=== PATIENT | female | born 1985 | race Caucasian/White ===

== ENCOUNTER 2017-08-29 19:22 | Emergency (ER) | payer OTHER, SELFPAY ==
[2017-08-29 19:22] VITALS: BP 114/85; PULSE 74; RESP 15; TEMP 36.7; BMI 22.3
--- NOTE | 2017-08-29 19:37 | ED.VISSUMM ---
- ER Visit Summary Date of Service: 08/29/17 Chief Complaint: Right wrist pain History of Present Illness: The patient is a 32 F who states she slapped a door open handed today because she was angry and upset. She now has pain to her right wrist. She is right-hand dominant. She denies paresthesias. Physical Examination: Vital signs are unremarkable. Physical exam is significant for right upper extremity which reveals focal tenderness over the ulnar aspect of the right wrist. There is no tenderness of the metacarpals. She has full range of motion. Normal cap refill is noted. Normal sensation is noted. Test Results: Right wrist x-rays are unremarkable. Emergency Department Course and Treatment: As results are discussed with the patient. She was placed in an Ronald wrap. Treatment Plan: [] Disposition: Discharge Impression: Right wrist sprain This note was generated with [facility] dictation software. It may contain incorrect words, spelling, and punctuation that were not noted in review of the chart prior to signing ED Disposition - Plan for ED Patient: Chief Complaint: Upper Extremity Injury Referrals: David Reaves DO [Primary Care Provider] -
--- NOTE | 2017-08-29 19:40 | RAD_ITS ---
XR Wrist Min 3 Views INDICATION: PAIN S/P PUNCHING DOOR COMPARISON: None TECHNIQUE: 3 views of the right wrist FINDINGS: The osseous structures are intact and well aligned. Joint spaces are preserved. No evidence of radiopaque foreign body. RAD/Wrist min 3 Views IMPRESSION: Negative plain film examination of the right wrist. at 2021 Reported and signed by: Jazmyn Westfall MD Electronically Signed: Jazmyn Westfall MD at 19:20 EST Tel , Service support ,
--- NOTE | 2017-08-29 20:33 | ED.DEP ---
ED Disposition - Plan for ED Patient: Disposition: Home or Assisted Living Chief Complaint: Upper Extremity Injury Instructions: ED Sprain Wrist Referrals: David Reaves DO [Primary Care Provider] - As Needed
[2017-08-29 20:38] VITALS: RESP 16
== END 2017-08-29 20:39 | disposition home or self-care (01) ==
PROVIDERS: Emergency Provider Emergency Medicine; Family Provider Family Medicine; PCP Family Medicine
DX: S63.501A Unspecified sprain of right wrist, initial encounter (principal); Z72.0 Tobacco use; W22.8XXA Striking against or struck by other objects, initial encounter; Y93.89 Activity, other specified; Y92.89 Other specified places as the place of occurrence of the external cause; Y99.8 Other external cause status
CPT/HCPCS: 73110; 99282

== ENCOUNTER → 2018-04-09 16:03 | Outpatient (CLI) | payer OTHER, SELFPAY ==
[2018-04-09 17:39] LABS: Absolute Neutrophil Count 3.7 X10^3/uL (2.0-7.7); Basophil# 0.03 X10^3/uL; Basophil% 0.5 % (0-1); Eosinophils% 1.7 % (0-5); Hematocrit 38.3 % (37-47); Hemoglobin 12.6 g/dl (12.0-15.0); Lymphocyte % 23.6 % (19-41); Mean Corp Hgb Conc 32.9 g/gl (32-36); Mean Corpuscular Hgb 31.6 pg (27.0-32.0); Mean Platelet Vol. 10.5 fl (6.2-12.0); Monocyte# 0.69 X10^3/uL; Monocyte% 11.7 % (0-10); Neutrophil # 3.68 X10^3/uL (2.7-7.7); Neutrophil % 62.2 % (47-70); Platelet Count 269 K/mm3 (150-450); RBC Distribution Width CV 12.4 % (11.6-14.6); RBC Distribution Width SD 42.4 fl (35.1-43.9); Red Blood Count 3.99 M/mm3 (4.2-5.4); White Blood Count 5.9 K/mm3 (4.4-11.0)
[2018-04-09 17:48] LABS: POSITIVE COUNT NO; POSITIVE DIFFERENTIAL NO; POSITIVE MORPHOLOGY NO
[2018-04-09 17:59] LABS: Vitamin B12 323 pg/mL (211-911)
[2018-04-09 18:27] LABS: Ferritin 7 ng/mL (8-252); Iron 44 ug/dL (50-170); Iron Binding Capacity,Total 345 ug/dL (250-450); Thyroid Stim Hormone (TSH) 0.71 uIU/mL (0.358-3.74)
== END ==
PROVIDERS: Family Provider Family Medicine; PCP Family Medicine; Visit Provider Family Medicine
DX: D64.9 Anemia, unspecified (principal); H05.20 Unspecified exophthalmos
CPT/HCPCS: 36415; 82607; 82728; 82746; 83540; 83550; 84443; 85025

== ENCOUNTER → 2018-06-17 09:32 | Outpatient (CLI) | payer OTHER, SELFPAY ==
--- NOTE | 2018-06-17 09:37 | RAD_ITS ---
STUDY: X-RAY - LEFT HIP REASON FOR EXAM: Female, 33 years old. 2 week history of left hip pain and left groin pain. TECHNIQUE: 2 views of the hip. COMPARISON: None. FINDINGS: Normal femoral head, neck, intertrochanteric region and visualized proximal femur. Normal acetabulum. Normal hip joint. Normal visualized superior and inferior pubic rami and ischial tuberosities. Calcified phleboliths are seen in the pelvis. Moderate amount of fecal material is seen in the colon. RAD/Hip Min 2 Views (Portable) IMPRESSION: Normal x-ray examination of the hip. Electronically Signed: Saúl Weiss MD at 9:45 EST Tel [phone], Service support ,
--- OUTSIDE RECORDS SUMMARY | 2018-08-03 03:12 | XMS RPT_ITS ---
:1985 Author Organization [facility] Care Team Providers Name Role Phone David Reaves Attending Unavailable David Reaves Referring Unavailable David Reaves Primary Care Unavailable David Reaves Primary Care Unavailable Bk Prieto Attending Unavailable Lela Landis Attending Unavailable David Reaves Primary Care Unavailable PROBLEMS PROBLEMS DATE TYPE CONDITION / CODE ATTENDING STATUS SOURCE 06/17/2018 Unknown M25.552 - Pain in David Reaves Active [facility] left hip / Community M25.552(ICD-10) Hospital Repository 04/09/2018 Unknown D64.9 - Anemia, Lela Landis Active [facility] unspecified / Community D64.9(ICD-10) Hospital Repository 04/09/2018 Unknown H05.20 - Lela Landis Active [facility] Unspecified Community exophthalmos / Hospital H05.20(ICD-10) Repository PROCEDURES PROCEDURES No Procedure Records FoundRESULTS RESULTS HIP MIN 2 VIEWS Observed: 06/17/2018 Status: F Source: [place] (PORTABLE) 9:37 AM [facility] HOSPITAL REPOSITORY [facility] Imaging Services [address] [place] [address] Hip Min 2 Views (Portable) MR#: [id number] Acct: [id number] Name: BK CONROY Rep #: [id number] : 1985 F 33 From: Saúl Weiss MD PCP: David Reaves DO Status: REG CLI Study: Hip Min 2 Views (Portable) Date of Exam: 06/17/18 Exam# [id number] Ordering Dr: David Reaves DO STUDY: X-RAY - LEFT HIP REASON FOR EXAM: Female, 33 years old. 2 week history of left hip pain and left groin pain. TECHNIQUE: 2 views of the hip. COMPARISON: None. FINDINGS: Normal femoral head, neck, intertrochanteric region and visualized proximal femur. Normal acetabulum. Normal hip joint. Normal visualized superior and inferior pubic rami and ischial tuberosities. Calcified phleboliths are seen in the pelvis. Moderate amount of fecal material is seen in the colon. RAD/Hip Min 2 Views (Portable) IMPRESSION: Normal x-ray examination of the hip. Electronically Signed: Saúl Weiss MD at 9:45 EST Tel [phone], Service support , CC: David Reaves DO [employer] Ticket Seller: Signed CBC W/DIFF, AUTOMATED Collected: 04/09/2018 Status: F Source: [place] 4:04 PM [facility] HOSPITAL REPOSITORY TYPE CODE TESTS RESULT OUT OF RANGE REFERENCE UNITS LAB L100.1000 4.4-11.0 K/mm3 Normal WBC 5.9 LAB L100.1200 4.2-5.4 M/mm3 Low RBC 3.99 LAB L100.1300 12.0-15.0 g/dl Normal HGB 12.6 LAB L100.1400 37-47 % Normal HCT 38.3 LAB L100.1500 81-99 fL Normal MCV 96.0 LAB L100.1600 27.0-32.0 pg Normal MCH 31.6 LAB L100.1700 32-36 g/gl Normal MCHC 32.9 LAB L100.1810 11.6-14.6 % Normal RDW CV 12.4 LAB L100.1820 35.1-43.9 fl Normal RDW SD 42.4 LAB L100.1900 150-450 K/mm3 Normal PLT 269 LAB L100.2000 6.2-12.0 fl Normal MPV 10.5 LAB L100.2100 47-70 % Normal NEUT% 62.2 LAB L100.2200 19-41 % Normal LY% 23.6 LAB L100.2300 0-10 % High MONO% 11.7 LAB L100.2400 0-5 % Normal EO% 1.7 LAB L100.2500 0-1 % Normal BASO% 0.5 LAB L100.2550 0.0-0.9 % Normal IM GRAN % 0.300 Result Comment: IG% - Immature Granulocytes (promyelocytes, myelocytes and metamyelocytes) > 1% indicates that a LEFT SHIFT is Present. LAB L100.2620 2.0-7.7 X10 3/uL Normal Absolute Neut 3.7 LAB L100.2720 0.83-4.51 X10 3/ul Normal Absolute Lymph 1.40 Performed By: #### L100.0100 #### [facility] Laboratory [address] [place], [place], [address] VITAMIN B12 Collected: 04/09/2018 Status: F Source: COT[place]I 4:04 PM [facility] REPOSITORY TYPE CODE TESTS RESULT OUT OF RANGE REFERENCE UNITS LAB L503.0105 211-911 pg/mL Normal Vitamin B12 323 Performed By: #### L503.0105 #### [facility] Laboratory [address] [place], [address] THYROID STIM HORMONE Collected: 04/09/2018 Status: F Source: [place] (TSH) 4:04 PM [facility] REPOSITORY Order Comment: Is Patient Taking Vitamins or Folic Acid Supplements? N TYPE CODE TESTS RESULT OUT OF RANGE REFERENCE UNITS LAB L501.9520 0.358-3.74 uIU/mL Normal TSH 0.71 Performed By: #### L501.9520, L503.6075, L503.6150, L503.6550, L506.0250 #### [facility] Laboratory [address] [place], [address] IRON BINDING Collected: 04/09/2018 Status: F Source: [place] CAPACITY,TOTAL 4:04 PM [facility] REPOSITORY Order Comment: Is Patient Taking Vitamins or Folic Acid Supplements? N TYPE CODE TESTS RESULT OUT OF RANGE REFERENCE UNITS LAB L503.6075 250-450 ug/dL Normal TIBC 345 Performed By: #### L501.9520, L503.6075, L503.6150, L503.6550, L506.0250 #### [facility] Laboratory [address] [place], [address] IRON Collected: 04/09/2018 Status: F Source: [place] 4:04 PM [facility] REPOSITORY Order Comment: Is Patient Taking Vitamins or Folic Acid Supplements? N TYPE CODE TESTS RESULT OUT OF RANGE REFERENCE UNITS LAB L503.6150 50-170 ug/dL Low IRON 44 Performed By: #### L501.9520, L503.6075, L503.6150, L503.6550, L506.0250 #### [facility] Laboratory [address] [place], [address] FERRITIN Collected: 04/09/2018 Status: F Source: [place] 4:04 PM [facility] REPOSITORY Order Comment: Is Patient Taking Vitamins or Folic Acid Supplements? N TYPE CODE TESTS RESULT OUT OF REFERENCE UNITS RANGE LAB L503.6550 8-252 ng/mL Low FERRITIN 7 Performed By: #### L501.9520, L503.6075, L503.6150, L503.6550, L506.0250 #### [facility] Laboratory [address] [place], [address] FOLATES, (FOLIC ACID) Collected: 04/09/2018 Status: F Source: [place] 4:04 PM [facility] REPOSITORY Order Comment: Is Patient Taking Vitamins or Folic Acid Supplements? N TYPE CODE TESTS RESULT OUT OF RANGE REFERENCE UNITS LAB L506.0250 3.1-55.4 ng/mL Normal FOLATES 22.70 Performed By: #### L501.9520, L503.6075, L503.6150, L503.6550, L506.0250 #### [facility] Laboratory [address] [place], [address] EMERGENCY DEPARTMENT Observed: 08/29/2017 Status: F Source: BR[place] SUMMARY 10:56 PM [facility] REPOSITORY [facility] Medical Records Department [address] [place] [address] Emergency Department Summary 08/29/17 1937 MR#: [id number] Acct: [id number] Name: BK CONROY Rep #: [id number] : 1985 32 From: Bk Prieto MD PCP: David Reaves DO Status: DEP ER - ER Visit Summary Date of Service: 08/29/17 Chief Complaint: Right wrist pain History of Present Illness: The patient is a 32 F who states she slapped a door open handed today because she was angry and upset. She now has pain to her right wrist. She is right-hand dominant. She denies paresthesias. Physical Examination: Vital signs are unremarkable. Physical exam is significant for right upper extremity which reveals focal tenderness over the ulnar aspect of the right wrist. There is no tenderness of the metacarpals. She has full range of motion. Normal cap refill is noted. Normal sensation is noted. Test Results: Right wrist x-rays are unremarkable. Emergency Department Course and Treatment: As results are discussed with the patient. She was placed in an Ronald wrap. Treatment Plan: [] Disposition: Discharge Impression: Right wrist sprain This note was generated with [employer] dictation software. It may contain incorrect words, spelling, and punctuation that were not noted in review of the chart prior to signing ED Disposition - Plan for ED Patient: Chief Complaint: Upper Extremity Injury Referrals: David Reaves DO [Primary Care Provider] - What to do if you have Problems For any increased pain, shortness of breath, bleeding, nausea or vomiting, chest pain, or any unexpected problems, contact your Primary Care Provider. Call [facility] ([phone]) or report to the closest Emergency Room. Call 911 if necessary. 08/29/172255 <Electronically signed by Bk Prieto MD> Date Bk Prieto MD Cosigner Signature (If Indicated): Date CC: David Reaves DO DISCHARGE INSTRUCTION Observed: 08/29/2017 Status: F Source: COTOPAXI 8:34 PM [facility] REPOSITORY [facility] Medical Records Department [address] [place] [address] Discharge Instruction 08/29/172032 MR#: [id number] Acct: [id number] Name: BK CONROY Rep #: [id number] : 1985 32 From: Bk Prieto MD PCP: David Reaves DO Status: REG ER ED Disposition - Plan for ED Patient: Disposition: Home or Assisted Living Chief Complaint: Upper Extremity Injury Instructions: ED Sprain Wrist Referrals: David Reaves DO [Primary Care Provider] - As Needed What to do if you have Problems For any increased pain, shortness of breath, bleeding, nausea or vomiting, chest pain, or any unexpected problems, contact your Primary Care Provider. Call [facility] ([phone]) or report to the closest Emergency Room. Call 911 if necessary. 08/29/172033 <Electronically signed by Bk Prieto MD> Date Bk Prieto MD Cosigner Signature (If Indicated): Date CC: David Reaves DO WRIST MIN 3 VIEWS Observed: 08/29/2017 Status: F Source: [place] 7:36 PM [facility] Imaging Services [address] [place] [address] Wrist min 3 Views MR#: [id number] Acct: [id number] Name: BK CONROY Rep #: [id number] : 1985 F 32 From: Jazmyn Westfall MD PCP: David Reaves DO Status: REG ER Study: Wrist min 3 Views Date of Exam: 08/29/17 Exam# [id number] Ordering Dr: Bk Prieto MD XR Wrist Min 3 Views INDICATION: PAIN S/P PUNCHING DOOR COMPARISON: None TECHNIQUE: 3 views of the right wrist FINDINGS: The osseous structures are intact and well aligned. Joint spaces are preserved. No evidence of radiopaque foreign body. RAD/Wrist min 3 Views IMPRESSION: Negative plain film examination of the right wrist. at 2021 Reported and signed by: Jazmyn Westfall MD Electronically Signed: Jazmyn Westfall MD at 19:20 EST Tel , Service support , CC: Bk Prieto MD; David Reaves DO [employer] Ticket Seller: Signed ALLERGIES ALLERGIES DATE TYPE / CODE NAME / CODE REACTION SEVERITY SOURCE 08/29/2017 Drug Penicillins/ Hives Unknown [facility] Allergy/4160 [id number]( Hospital 23049(SNOMED XNORM) Repository CT) ENCOUNTERS ENCOUNTERS ADMIT/DISCHARGE ACCOUNT ADMITTING ENCOUNTER LOCATION SOURCE NUMBER CLASS 06/17/2018 [id number] Ambulatory [address] ing:MTRAD Repository 04/09/2018 [id number] Ambulatory [facility] [place] 2 [facility] ing:BFHLAB Repository 08/29/2017/ [id number] Emergency [facility] [place] 8 0 [facility] ing:ED Repository PAYERS PAYERS ENCOUNTER GUARANTOR PAYER SUBSCRIBER SOURCE 06/17/2018 BK Abdullahi Primary BK [facility] [id number] Insurance:SUMMA BRESSIDOB: Community RUDOLPH CAREPolicy [place]: [id number] [id number] Repository [address]Nzm: (330) Date:2242-66-17VM [phone] (HP) [address] [place] [phone]: 06/17/2018 Secondary NOT GIVENUNK [place] Insurance:SELF PAY [facility] Number: Effective Repository Date:2018-06-17 04/09/2018 BK Abdullahi Primary BK Cardona [id number] Insurance:SUMMA BRESSIDOB: [facility] Rudolph CAREPolicy Number: [id number] [id number] Repository [address]Ylj: (330) Date:2475-86-33FG [phone] () [address] [place] [phone]: 04/09/2018 Secondary NOT GIVENUNK [place] Insurance:SELF PAY [facility] Number: Effective Repository Date:2018-04-09 08/29/2017 BK Abdullahi Primary BK Cardona [id number] Insurance:SUMMA BRESSIDOB: [facility] [place] CAREPolicy Number: [id number] [id number] Repository [address]Efp: (330) Date:9997-84-21EV [phone] (HP) [address], [place] [address]HM: 08/29/2017 Secondary NOT GIVENUNK [facility] Insurance:SELF PAY [facility] Number: Effective Repository Date:2017-08-29
== END ==
PROVIDERS: Family Provider Family Medicine; PCP Family Medicine; Referring Provider Family Medicine; Visit Provider Family Medicine
DX: M25.552 Pain in left hip (principal)
CPT/HCPCS: 73502

== ENCOUNTER 2020-03-04 08:38 | Emergency (ER) | payer OTHER, SELFPAY ==
[2019-01-17 11:15] VITALS: BMI 22.3
[2020-03-04 08:39] VITALS: BP 135/93; PULSE 72; RESP 17; TEMP 36.2; O2SAT 100; BMI 23.0
--- NOTE | 2020-03-04 09:02 | ED.DCSUM_ITS ---
History of Present Illness Chief Complaint: Abscess Informant: Patient, Family Narrative: 34-year-old female with no past medical history presents with concern for swelling within her vagina. States is been present over the past few days. States that she has had it before in the past however this is more painful than previously. Denies any fever or chills. Denies any urinary symptoms or drainage. Denies any concern for STDs. Past Medical History - Allergies and Home Meds Allergies/Adverse Reactions: Allergies Penicillins Allergy (Verified 03/04/20 08:39) Hives Primary Care Physician: David Reaves DO [Primary Care Provider] - Past Medical History: None Surgical History: no surgical history Lives: Alone Smoking Status: Never smoker Alcohol: None Drugs: None Review of Systems General: Denies: Chills, Fever, Sweats Eyes: Denies: Visual changes - bilaterally, Diplopia ENT: Denies: Rhinorrhea, Sore throat Cardiovascular: Denies: Chest pain, Palpitations Respiratory: Denies: Dyspnea, Cough, Dyspnea on exertion Gastrointestinal: Denies: Abdominal pain, Nausea, Vomiting, Diarrhea, Melena, Hematochezia Genitourinary: Reports: - - Vaginal swelling and pain. Denies: Dysuria, Hematuria, Frequency Musculoskeletal: Denies: Back pain, Extremity Pain Skin: Denies: Rash, Wounds Neurological: Denies: Headache, Weakness, Numbness Physical Exam Vital Signs/Narrative: Vital Signs Temp Pulse Resp BP Pulse Ox 03/04/20 08:39 97.2 F L 72 17 135/93 H 100 Inital Vital Signs reviewed: Yes General: Well nourished, Well developed, No Acute Distress Head: Normocephalic, Atraumatic Eyes: Perrl, EOMI ENT: Moist mucous membranes, No rhinorrhea Neck: Supple, Nontender Cardiovascular: Regular rate, Regular rhythm, No murmurs Respiratory: No distress, CTA bilaterally, Chest nontender Abdomen: Soft, Nontender, Nondistended, Normal bowel sounds : - - Evidence of right-sided Bartholin abscess versus cyst at approximately the 8 o'clock position. Back: Nontender, Normal Inspection Extremities: Nontender, No edema Skin: Normal color, No rash Neurological: Alert, Oriented x3, Cranial nerves II-XII grossly intact, Normal Strength, Normal Sensation Psychological: Normal affect, Normal Mood Diagnostic/Tx/Re-eval - Medical Decision Making Patient appears well nontoxic. Evidence of Bartholin gland abscess versus infected cyst on the right at the 8 o'clock position. Patient had this area incised and drained under local anesthesia with 1% lidocaine and epinephrine. Copious purulent material was evacuated. Curved hemostats were used to break up loculations. The area was irrigated well with sterile saline. Patient will be placed on Bactrim and will follow-up with MECHANICAL DEVELOPMENT ENGINEER tomorrow. Asked to return for any abdominal pain, fever, chills. Patient advised on sitz bath's and abstaining from sexual intercourse until cleared by MECHANICAL DEVELOPMENT ENGINEER. Discharged home in stable condition. Pression: 1. Bartholin gland abscess Procedures Procedure(s): incision and drainage ED Disposition - Plan for ED Patient: Disposition: Home or Assisted Living Instructions: ED Bartholins Cyst IandD Prescriptions: Smz/Tmp Ds [Bactrim Ds] 1 tab PO BID #14 tab Prescription Printed Oxycodone [Oxyir] 5 mg PO Q6H PRN PRN 2 Days #6 tab PRN Reason: Pain Score 6-10/10 Prescription Printed Referrals: David Reaves DO [Primary Care Provider] - Fany Bates MD [STAFF PHYSICIAN] -
[2020-03-04] MEDS: oxyCODONE 5 MG Tablet PO (09:04)
[2020-03-04 10:08] VITALS: PULSE 80; RESP 16; O2SAT 98
== END 2020-03-04 10:08 | disposition home or self-care (01) ==
PROVIDERS: Emergency Provider Emergency Medicine; PCP Family Medicine
DX: N75.1 Abscess of Bartholin's gland (principal); Z88.0 Allergy status to penicillin
CPT/HCPCS: 56420; 99283

== ENCOUNTER → 2020-07-24 13:51 | Outpatient (CLI) | payer OTHER, SELFPAY ==
[2020-03-09 13:35] VITALS: BMI 23.0
== END ==
PROVIDERS: PCP Family Medicine; Visit Provider Family Medicine
DX: U07.1 COVID-19 (principal)
CPT/HCPCS: 87635; U0003

== ENCOUNTER → 2020-09-10 14:53 | Outpatient (CLI) | payer OTHER, SELFPAY ==
[2020-03-09 13:35] VITALS: BMI 23.0
[2020-09-10 17:21] LABS: Absolute Neutrophil Count 5.7 X10^3/uL (2.0-7.7); Basophil# 0.02 X10^3/uL; Basophil% 0.2 % (0-1); Eosinophil# 0.04 X10^3/uL; Eosinophils% 0.5 % (0-5); Hematocrit 40.8 % (37-47); Hemoglobin 13.3 g/dL (12.0-15.0); Lymphocyte % 20.8 % (19-41); Mean Corp Hgb Conc 32.6 g/dL (32-36); Mean Corpuscular Hgb 30.8 pg (27.0-32.0); Mean Corpuscular Volume 94.4 fL (81-99); Mean Platelet Vol. 10.7 fl (6.2-12.0); Monocyte# 0.66 X10^3/uL; Monocyte% 8.1 % (0-10); NRBC Flagged by Analyzer 0 % (0-5); Neutrophil # 5.74 X10^3/uL (2.7-7.7); Platelet Count 253 K/mm3 (150-450); RBC Distribution Width SD 42.3 fl (35.1-43.9); Red Blood Count 4.32 M/mm3 (4.2-5.4); White Blood Count 8.2 K/mm3 (4.4-11.0)
[2020-09-10 17:27] LABS: Hemoglobin A1c 4.8 % (3.8-5.6)
[2020-09-10 17:41] LABS: Vitamin D,25 Hydroxy 24.8 ng/mL
[2020-09-10 18:27] LABS: ALB/GLOB Ratio 1.2 RATIO (0.9-2.4); AST(SGOT) 22 U/L (15-37); Alanine Aminotransfer ALT/SGPT 24 U/L (13-56); Albumin, Serum 4.3 g/dL (3.2-5.0); Alkaline Phosphatase 50 U/L (45-117); Anion Gap 5 (5-15); BUN 11 mg/dL (7-18); BUN/Creat Ratio 16.4 RATIO (10-20); Calcium,Total 8.8 mg/dL (8.5-10.1); Chloride 103 mmol/L (98-107); Creatinine, Serum 0.67 mg/dL (0.55-1.02); EST Glomerular Filtration Rate 105 mL/min (>60); Est Glom Filt Rate - Afr Amer 127 mL/min (>60); Globulin 3.5 g/dL (2.2-4.2); Glucose 90 mg/dL (74-106); Prolactin 27.9 ng/mL; Protein, Total 7.8 g/dL (6.4-8.2); Sodium Level 138 mmol/L (136-145); T4 Free Direct 1.12 ng/dL (0.76-1.46); Thyroid Stim Hormone (TSH) 1.17 uIU/mL (0.358-3.74)
== END ==
PROVIDERS: PCP Family Medicine; Visit Provider Family Medicine
DX: E16.2 Hypoglycemia, unspecified (principal); R53.83 Other fatigue; N92.6 Irregular menstruation, unspecified
CPT/HCPCS: 36415; 80053; 82306; 83036; 84146; 84439; 84443; 85025

== ENCOUNTER → 2020-12-17 12:40 | Outpatient (CLI) | payer OTHER, SELFPAY ==
[2020-03-09 13:35] VITALS: BMI 23.0
[2020-12-17 16:21] LABS: CPK Total, Creatine Kinase 74 U/L (26-192); CRP < 2.90 mg/L (0.0-3.0)
[2020-12-17 16:24] LABS: Erythrocyte Sedimentation Rate < 1 mm/hr (0-30)
[2020-12-19 15:34] LABS: ANTINUCLEAR ANTIBODIES DIRECT Negative (Negative)
== END ==
PROVIDERS: PCP Family Medicine; Referring Provider Family Medicine; Visit Provider Family Medicine
DX: M79.10 Myalgia, unspecified site (principal); R29.898 Other symptoms and signs involving the musculoskeletal system
CPT/HCPCS: 36415; 82550; 85652; 86038; 86140; 86225; 86235

== ENCOUNTER → 2021-01-02 06:39 | Outpatient (CLI) | payer OTHER, SELFPAY ==
[2020-03-09 13:35] VITALS: BMI 23.0
--- NOTE | 2021-01-02 06:55 | MRI_ITS ---
STUDY: MRI BRAIN WITH AND WITHOUT CONTRAST REASON FOR EXAM: Female, 35 years old. MS TECHNIQUE: Standardized multiplanar fat and water weighted pulse sequences were obtained. IV 10 cc dotarem was administered for the contrast portion of the examination. COMPARISON: None. FINDINGS: Normal size of the ventricles and extra-axial spaces for the patient''s age. Normal white matter tracts of the supratentorial brain. There is no evidence for recent intracranial ischemia or other cause of cytotoxic edema on diffusion weighted imaging (DWI). Normal T2* images of the brain without demonstrated susceptibility artifact. There is no demonstrated hemosiderin stain. Normal bilateral basal ganglia. Normal thalami. There is no extra-axial fluid accumulation. Normal flow voids within the major intracranial circulation suggesting patency by spin echo criteria. Normal venous enhancement. There is no enhancing intra-axial or extra-axial abnormality. Normal sella turcica, pituitary gland, infundibular stalk, optic chiasm and hypothalamus. Normal tectal plate and pineal gland. Normal midbrain, ron and medulla. Normal cerebellum. Normal basal cisterns. Normal bilateral temporal bones. Normal bilateral internal auditory canals. No demonstrated orbital abnormality, within the constraints of a routine brain study. Normal visualized paranasal sinuses. Normal calvarium and skull base. Normal visualized soft tissue structures. Normal visualized upper cervical spine. MRI/Brain W/WO Contrast IMPRESSION: Normal unenhanced and enhanced MRI of the brain. Electronically Signed: Gregory Barragan MD at 11:42 EDT Tel , Service support ,
--- NOTE | 2021-01-02 06:56 | MRI_ITS ---
STUDY: MRI CERVICAL SPINE WITH AND WITHOUT CONTRAST REASON FOR EXAM: Female, 35 years old. MS TECHNIQUE: Standardized fat and water weighted pulse sequences were obtained in the sagittal and axial following administration of IV 10 cc dotarem. COMPARISON: X-ray 03/18/2019 FINDINGS: Normal foramen magnum and brainstem-cervical cord junction. Normal craniovertebral junction. Normal anterior atlantoaxial articulation. Normal odontoid process. Normal cervical lordosis. Normal vertebral bodies and posterior osseous elements. C2-3: Normal endplates. Normal disc height, signal and morphology. Normal central canal and intervertebral neural foramina. C3-4: Normal endplates. Normal disc height, signal and morphology. Normal central canal and intervertebral neural foramina. C4-5: Normal endplates. Normal disc height, signal and morphology. Normal central canal and intervertebral neural foramina. C5-6: Normal endplates. Normal disc height, signal and morphology. Normal central canal and intervertebral neural foramina. C6-7: Normal endplates. Normal disc height, signal and morphology. Normal central canal and intervertebral neural foramina. C7-T1: Normal endplates. Normal disc height, signal and morphology. Normal central canal and intervertebral neural foramina. Normal cervical cord. Normal visualized soft tissue structures. MRI/Spine Cervical W/WO Contrast IMPRESSION: Normal unenhanced and enhanced MR examination of the cervical spine. Electronically Signed: Gregory Barragan MD at 11:46 EDT Tel , Service support ,
--- NOTE | 2021-01-02 06:56 | MRI_ITS ---
STUDY: MRI THORACIC SPINE WITH AND WITHOUT CONTRAST REASON FOR EXAM: Female, 35 years old. MS TECHNIQUE: IV 10cc dotarem was administered for the contrast portion of the examination. COMPARISON: None. FINDINGS: Normal kyphosis of the thoracic spine. There is no substantial scoliosis. T1-2, T2-3, T3-4, T4-5, T5-6, T6-7, T7-8, T8-9, T9-10, T10-11, T11-12: Normal endplates. Normal disc hydration, heights and morphology of the corresponding intervertebral discs. Normal central canal and intervertebral neural foramina at the corresponding levels. Normal visualized thoracic cord. Normal conus medullaris that terminates at the . The soft tissue structures are unremarkable. There is no enhancing abnormality. MRI/Spine Thoracic W/WO Contrast IMPRESSION: Normal unenhanced and enhanced MRI examination of the thoracic spine. Electronically Signed: Gregory Barragan MD at 11:49 EDT Tel , Service support ,
== END ==
PROVIDERS: PCP Family Medicine; Referring Provider Family Medicine; Visit Provider Family Medicine
DX: R29.898 Other symptoms and signs involving the musculoskeletal system (principal); M54.2 Cervicalgia; M54.6 Pain in thoracic spine; R53.82 Chronic fatigue, unspecified; R35.0 Frequency of micturition
CPT/HCPCS: 70553; 72156; 72157; A9575

== ENCOUNTER → 2022-07-28 | Outpatient (CLI) | payer OTHER, SELFPAY ==
[2022-07-28 10:05] LABS: Bacteria 0 SEEN /hpf (None Seen); Mucous, Urine 0 SEEN /hpf (<or=2+); Red Blood Cells-Urine 0 SEEN /hpf (0-5); White Blood Cells 0 SEEN /hpf (0-5)
[2022-07-28 12:16] LABS: Absolute Lymphocyte Count 1.29 X10^3/uL (0.83-4.51); Absolute Neutrophil Count 3.2 X10^3/uL (2.0-7.7); Basophil# 0.02 X10^3/uL; Basophil% 0.4 % (0-1); Eosinophil# 0.06 X10^3/uL; Eosinophils% 1.2 % (0-5); Hematocrit 41.6 % (37-47); Hemoglobin 13.8 g/dL (12.0-15.0); Lymphocyte # 1.29 X10^3/ul (0.83-4.51); Lymphocyte % 25.6 % (19-41); Mean Corp Hgb Conc 33.2 g/dL (32-36); Mean Corpuscular Hgb 31.1 pg (27.0-32.0); Mean Corpuscular Volume 93.7 fL (81-99); Mean Platelet Vol. 10.8 fl (6.2-12.0); Monocyte# 0.45 X10^3/uL; Monocyte% 8.9 % (0-10); NRBC Flagged by Analyzer 0 % (0-5); Neutrophil # 3.19 X10^3/uL (2.7-7.7); Neutrophil % 63.5 % (47-70); Platelet Count 238 K/mm3 (150-450); RBC Distribution Width CV 11.9 % (11.6-14.6); RBC Distribution Width SD 41.5 fl (35.1-43.9); Red Blood Count 4.44 M/mm3 (4.2-5.4)
[2022-07-28 12:26] LABS: Glucose, Dipstick Normal (Normal); Ketone-Dipstick Negative (Negative); Leukocyte Esterase-Dipstick Negative /ul (Negative); Nitrite-Dipstick Negative (Negative); Occult Blood-Urine Negative /ul (Negative); Protein-Dipstick Negative (Negative); Urine Bilirubin Dipstick Negative (Negative); Urine Urobilinogen Normal (Normal)
[2022-07-28 12:31] LABS: Color, Urine Yellow (Yellow); Urine Clarity Clear (Clear)
[2022-07-28 12:36] LABS: Squamous Epithelial Cells - UA 0-5 SEEN /hpf (5-10)
[2022-07-28 12:37] LABS: Internal QC Validated? YES +Cl - CLEAR BKGD; Pregnancy, Urine Negative Negative
[2022-07-28 12:41] LABS: ALB/GLOB Ratio 1.2 RATIO (0.9-2.4); AST(SGOT) 20 U/L (15-37); Alanine Aminotransfer ALT/SGPT 33 U/L (13-56); Albumin, Serum 4.1 g/dL (3.2-5.0); Alkaline Phosphatase 44 U/L (45-117); Anion Gap 7 (5-15); BUN 11 mg/dL (7-18); Calcium,Total 8.7 mg/dL (8.5-10.1); Chloride 105 mmol/L (98-107); Creatinine, Serum 0.73 mg/dL (0.55-1.02); EST Glomerular Filtration Rate 94 mL/min (>60); Est Glom Filt Rate - Afr Amer 114 mL/min (>60); Ferritin 12 ng/mL (8-252); Globulin 3.5 g/dL (2.2-4.2); Glucose 92 mg/dL (74-106); Iron 170 ug/dL (50-170); Iron Binding Capacity,Total 343 ug/dL (250-450); PERCENT IRON SATURATION 49.6 % (15.0-55.0); Potassium 3.8 mmol/L (3.5-5.1); Protein, Total 7.6 g/dL (6.4-8.2); Sodium Level 139 mmol/L (136-145)
[2022-07-28 13:05] LABS: Vitamin D,25 Hydroxy 33.5 ng/mL
== END | disposition home or self-care (01) ==
PROVIDERS: PCP Internal Medicine; Referring Provider Internal Medicine; Visit Provider Internal Medicine
DX: R10.31 Right lower quadrant pain (principal); E61.1 Iron deficiency; E55.9 Vitamin D deficiency, unspecified
CPT/HCPCS: 36415; 80053; 81001; 81025; 82306; 82728; 83540; 83550; 85025

== ENCOUNTER → 2022-08-06 | Outpatient (CLI) | payer OTHER, SELFPAY ==
--- NOTE | 2022-08-06 14:51 | CT_ITS ---
STUDY: CT ABDOMEN AND PELVIS WITH CONTRAST REASON FOR EXAM: Female, 37 years old. One-month history of right lower quadrant pain. RADIATION DOSAGE (If Supplied By Facility): CTDIvol = ( 10.97 ) mGy, DLP = ( 410.07 ) mGycm TECHNIQUE: Transaxial images were obtained from the dome of the diaphragm to the symphysis pubis without oral contrast. Oral and amp; IV Readi-CAT and amp; 100mL Isovue-300 was administered. Sagittal and coronal images were reconstructed. Individualized dose optimization techniques were used for this CT. COMPARISON: None. FINDINGS: The visualized lung bases are unremarkable. The visualized portions of the heart are within normal limits. Normal liver. Normal gallbladder and extrahepatic biliary system. Normal spleen. Normal pancreas. Normal bilateral adrenal glands. Normal right kidney. Normal left kidney. Normal visualized stomach. Normal small intestine. Large amount of fecal material is seen in the colon. The appendix is visualized and appears normal. Normal abdominal aorta. Normal inferior vena cava. Normal retroperitoneum. Normal urinary bladder. Enlarged heterogeneous uterus in keeping with the enlarged fibroid uterus. Normal abdominal wall. Normal osseous structures. CT/Abdomen/Pelvis WITH Contrast IMPRESSION: Enlarged fibroid uterus. Large amount of fecal material is seen in the colon. Electronically Signed: Saúl Weiss MD at 15:21 EST ,
== END | disposition home or self-care (01) ==
LOC: CT 14:30
PROVIDERS: PCP Internal Medicine; Referring Provider Internal Medicine; Visit Provider Internal Medicine
DX: D25.9 Leiomyoma of uterus, unspecified (principal); N85.2 Hypertrophy of uterus; R10.31 Right lower quadrant pain
CPT/HCPCS: 74177; Q9967

== ENCOUNTER → 2022-12-25 | Outpatient (CLI) | payer OTHER, SELFPAY ==
[2022-12-31 12:08] LABS: HPV APTIMA, High Risk Negative (Negative)
== END | disposition home or self-care (01) ==
LOC: LABSPEC 15:53
PROVIDERS: PCP Internal Medicine; Referring Provider Nurse Practitioner Women's Health; Visit Provider Nurse Practitioner Women's Health
DX: Z01.419 Encounter for gynecological examination (general) (routine) without abnormal findings (principal)
CPT/HCPCS: 87624; 88175; G0145

== ENCOUNTER → 2024-09-29 | Outpatient (CLI) | payer OTHER, SELFPAY ==
[2024-09-29 15:24] LABS: Bacteria 0 SEEN /hpf (None Seen); Mucous, Urine 0 SEEN /hpf (<or=2+); White Blood Cells 0 SEEN /hpf (0-5)
[2024-09-29 16:34] LABS: Absolute Lymphocyte Count 1.45 X10^3/uL (0.83-4.51); Absolute Neutrophil Count 3.8 X10^3/uL (2.0-7.7); Basophil# 0.03 X10^3/uL; Basophil% 0.5 % (0-1); Eosinophil# 0.04 X10^3/uL; Eosinophils% 0.7 % (0-5); Hematocrit 38.6 % (37-47); Hemoglobin 13.3 g/dL (12.0-15.0); Lymphocyte # 1.45 X10^3/ul (0.83-4.51); Lymphocyte % 24.7 % (19-41); Mean Corp Hgb Conc 34.5 g/dL (32-36); Mean Corpuscular Hgb 31.2 pg (27.0-32.0); Mean Corpuscular Volume 90.6 fL (81-99); Mean Platelet Vol. 9.8 fl (6.2-12.0); Monocyte# 0.48 X10^3/uL; Monocyte% 8.2 % (0-10); NRBC Flagged by Analyzer 0 % (0-5); Neutrophil # 3.84 X10^3/uL (2.7-7.7); Neutrophil % 65.4 % (47-70); Platelet Count 279 K/mm3 (150-450); RBC Distribution Width CV 12.3 % (11.6-14.6); RBC Distribution Width SD 40.4 fl (35.1-43.9); Red Blood Count 4.26 M/mm3 (4.2-5.4); White Blood Count 5.9 K/mm3 (4.4-11.0)
[2024-09-29 16:35] LABS: Color, Urine Yellow (Yellow); Glucose, Dipstick Normal (Normal); Ketone-Dipstick Negative (Negative); Leukocyte Esterase-Dipstick Negative /ul (Negative); Nitrite-Dipstick Negative (Negative); Occult Blood-Urine Negative /ul (Negative); Protein-Dipstick 15 mg/dl (Negative); Specific Gravity, Urine 1.005 (1.002-1.030); Urine Bilirubin Dipstick Negative (Negative); Urine Clarity Sl. Cloudy (Clear); Urine Urobilinogen Normal (Normal)
[2024-09-29 17:24] LABS: Red Blood Cells-Urine 0-5 SEEN /hpf (0-5); Squamous Epithelial Cells - UA 0-5 SEEN /hpf (5-10)
[2024-09-29 20:11] LABS: ALB/GLOB Ratio 1.8 RATIO (0.9-2.4); AST(SGOT) 22 U/L (<=31); Alanine Aminotransfer ALT/SGPT 23 U/L (<=34); Albumin, Serum 4.3 g/dL (3.5-5.0); Alkaline Phosphatase 49 U/L (35-104); Anion Gap 12 (5-15); BUN 10 mg/dL (4-19); BUN/Creat Ratio 15.6 RATIO (10-20); Calcium,Total 8.9 mg/dL (7.6-11.0); Carbon Dioxide 21.7 mmol/L (21.0-32.0); Chloride 103 mmol/L (98-108); Creatinine, Serum 0.65 mg/dL (0.70-1.20); EST Glomerular Filtration Rate 114 (>60); Globulin 2.4 g/dL (2.2-4.2); Glucose 90 mg/dL (70-99); Iron 59 ug/dL (50-170); Iron Binding Capacity,Total 301 ug/dL (250-450); Iron Binding Capacity,Unsat 242 ug/dL (228-428); Magnesium 2.3 mg/dL (1.5-2.2); Potassium 4.2 mmol/L (3.3-5.1); Protein, Total 6.7 g/dL (5.9-8.4); Sodium Level 136 mmol/L (133-145); Total Bilirubin 0.66 mg/dL (0.00-1.30)
[2024-09-29 21:56] LABS: Cholesterol 164 mg/dL (<=200); High Density Lipoprotein 40 mg/dL; Low Density Lipoprotein Calc. 110 mg/dL; Triglycerides 73 mg/dL; Very Low Density Lipoprotein 15 mg/dL (5-40); cholesterol:hdl ratio screen 4.13
[2024-09-29 22:01] LABS: Ferritin 30 ng/mL (22-378); Vitamin D,25 Hydroxy 24.8 ng/mL (30-100)
== END | disposition home or self-care (01) ==
LOC: BIMLAB 15:23
PROVIDERS: PCP Internal Medicine; Referring Provider Internal Medicine; Visit Provider Internal Medicine
DX: E61.1 Iron deficiency (principal); R39.15 Urgency of urination; E55.9 Vitamin D deficiency, unspecified; G24.5 Blepharospasm; Z82.49 Family history of ischemic heart disease and other diseases of the circulatory system
CPT/HCPCS: 36415; 80053; 80061; 81001; 82306; 82728; 83540; 83550; 83735; 85025